=== PATIENT | female | born 1985 | race Caucasian/White ===

== ENCOUNTER 2024-09-20 09:08 | Day surgery (SDC) | payer OTHER, SELFPAY ==
[2024-09-20] VITALS (13 sets, daily range): BP systolic 100–120; BP diastolic 58–86; PULSE 59–91; RESP 16–22; TEMP 36.6–37.2; O2SAT 98–100; BMI 17.2
[2024-09-20] MEDS: LACTATED RINGERS 1000 ML 1,000 ML 100 ML IV (09:20)
[2024-09-20 09:31] LABS: Ur HCG Qualitative* Negative (Negative)
[2024-09-20] MEDS: SODIUM CHLORIDE 0.9 % (FLUSH) 10 ML SYRINGE IVF (09:34)
--- NOTE | 2024-09-20 09:39 | PM.GSCN ---
History of Present Illness Consult details Date Seen: 09/20/24 Consult date: 09/20/24 Narrative: 39-year-old female was referred to general surgery with a concern of acute appendicitis. Patient states that she developed pain 36 hours ago. She was seen at her primary care doctor office yesterday. Pain was described as sharp and dull worse with movement or walking. She had an episode of nausea but no vomiting. She was passing gas. I personally reviewed her workup at [facility]. Her WBC was normal. Her direct bilirubin was 0.3 with normal transaminases and total bilirubin. An abdominal CT was obtained that showed wall enhancing appendix dilated to 0.7 cm. There is no periappendiceal abscess. There was periportal edema noted and the liver was thought to be enlarged. Discussion was held with the patient regarding treatment of her appendicitis with antibiotics versus proceeding with laparoscopic appendectomy, and patient elected to come to surgery for laparoscopic appendectomy. The patient was started antibiotics yesterday. Since patient was started on antibiotics, she felt like her pain was slightly improved but continued to bother her. Review of Systems Narrative: General: no fevers HENT: no problems swallowing CV: no shortness of breath Resp: no cough GI: No nausea, vomiting, abdominal pain : no dysuria, no increased urinary frequency, no hematuria Skin: no new rashes Musculoskeletal: no back pain Neuro: no muscle weakness Psyche: no depression, no anxiety PFSH PFS Medical History (Updated 09/20/24 @ 10:50 by Erika Clark MD) Arrhythmia ?I49.9 - Cardiac arrhythmia, unspecified (ICD-10) Vitamin D deficiency ?E55.9 - Vitamin D deficiency, unspecified (ICD-10) Anemia complicating ?O99.019 - Anemia complicating , unspecified trimester (ICD-10) Social History (Updated 09/20/24 @ 10:49 by Erika Clark MD) Narrative: 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 Smoking Status: Current every day smoker What tobacco products do you use: cigarettes Smoking packs per day: 0.5 Smoking cigarettes per day: 10.0 Do you use any of these nicotine containing products: Vaping Products How often do you have a drink containing alcohol: 2-3 times a week AUDIT-C Alcohol total score: 3 Non-prescribed substance use: denies use Caffeine: Yes Meds Home Medications and Allergies Home Medications ?Medication ?Instructions ?Recorded ?Confirmed ?Type amoxicillin 875 mg-potassium 1 tab PO BID 09/20/24 09/20/24 History clavulanate 125 mg tablet metronidazole 500 mg tablet 500 mg PO BID 09/20/24 09/20/24 History valacyclovir 1 gram tablet 1,000 mg PO BID PRN 09/20/24 09/20/24 History Allergies Allergy/AdvReac Type Severity Reaction Status Date / Time No Known Drug Allergies Allergy Verified 09/20/24 09:20 Exam Narrative: Exam Narrative: General appearance: Alert, cooperative, and in no distress Pulmonary: Chest symmetric, lungs clear bilaterally Cardiovascular Heart: Regular rate and rhythm, S1, S2, no murmurs/rubs/gallops Gastrointestinal Abdominal: soft, not distended, tender to palpation and percussion in the right lower quadrant, positive Rovsing sign. Skin: Normal skin color, texture, and turgor. No rashes or lesions. Psychiatric: Alert, cooperative, normal affect. Const: Vital Signs, click to edit/add: Vital Signs - 24 hr 09/20/24 09:33 Temperature 97.9 F Pulse Rate 81 Respiratory Rate 16 Blood Pressure 106/63 Pulse Oximetry 98 Oxygen Delivery Me thod Room Air Results Labs Labs: All other labs normal. Progress Note:A&P Assessment and plan (1) Acute appendicitis: Status: Acute Plan 39-year-old female presents with right lower quadrant pain that is most likely due to acute appendicitis. I discussed with the patient her laboratory and imaging findings. Patient has pain in the right lower quadrant and is tender on exam in the right lower quadrant. Her CT showed mild dilation of the appendix with wall enhancement. This is concerning for early acute appendicitis. I recommended to proceed with laparoscopic appendectomy. The procedure was discussed in detail. The risks associated procedure including infection, bleeding, and injury to intra-abdominal organs were all discussed with the patient, she agreed to proceed. Patient is cleared for surgery. Patient was also found to have periportal edema with direct bilirubin slightly above the upper limit of normal at 0.3. Patient is not obese with BMI of 17. Patient will have to follow up with her primary care doctor to recheck her labs to make sure they are improving.
--- NOTE | 2024-09-20 10:48 | P.ANES_ITS ---
Anesthesia Charges Start Date/Time Anesthesia Start Date: 09/20/24 Anesthesia Start Time: 10:49 Stop Date/Time Anesthesia Stop Date: 09/20/24 Anesthesia Stop Time: 11:51 Coding CPT Codes CPT Codes: ANESTH SURG LOWER ABDOMEN - 62442 ([id number]) P2 - PATIENT W/MILD SYST DISEASE, QK - TUBE DRAWING SUPERVISOR 2-4 CNCRNT ANES PROC, QX - PIERCING SPECIALIST SVC W/ MD MED DIRECTION
--- NOTE | 2024-09-20 10:48 | W.ANESCHARGE ---
Anesthesia Charges Start Date/Time Anesthesia Start Date: 09/20/24 Anesthesia Start Time: 10:49 Stop Date/Time Anesthesia Stop Date: 09/20/24 Anesthesia Stop Time: 11:51 Coding CPT Codes CPT Codes: ANESTH SURG LOWER ABDOMEN - 36426 ([id number]) P2 - PATIENT W/MILD SYST DISEASE, QK - RECRUITING OPERATIONS CONSULTANT 2-4 CNCRNT ANES PROC, QX - WOOL HAT FORMING MACHINE TENDER SVC W/ MD MED DIRECTION
[2024-09-20] MEDS: PIPERACILLIN/TAZOBACTAM 3.375 GM INJ IVPB (11:00)
[2024-09-20] MEDS: BUPIVACAINE 0.25% 30 ML INJECTION (11:30)
[2024-09-20] MEDS: LIDOCAINE 1%-EPI 1:100,000 20 ML INFILTRATI (11:30)
--- NOTE | 2024-09-20 11:38 | P.GSOP_ITS ---
Operative Note Date of procedure: 09/20/24 Pre-op diagnosis: 1. Acute appendicitis. Post-op diagnosis: 1. Early acute appendicitis. Type of Procedure: 1. Laparoscopic appendectomy. Indications: 39-year-old female was seen in clinic with persistent right lower quadrant pain. Patient underwent workup that showed normal WBC. Her abdominal CT showed will enhancing mildly dilated appendix concerning for early acute appendicitis. On clinical exam patient had tenderness to palpation in the right lower quadrant with positive Rovsing sign. Given patient's clinical history and her physical exam, discussion was held regarding treatment of her early acute appendicitis with antibiotics versus laparoscopic appendectomy, and patient elected to proceed with laparoscopic appendectomy. The procedure was discussed in detail. The risks associated procedure including infection, bleeding, injury to intra- abdominal organs, and the need for additional procedures were all discussed with the patient, and she agreed to proceed. Procedure Description: After discussing the risks and benefits of the procedure, the patient signed informed consent.? The operative site was marked and the patient was brought to the operating room and placed on the operating table in supine position.? Care was taken to pad the patient's pressure points.?? The patient was then intubated by anesthesia.?? The operative site was then prepped and draped in the usual sterile fashion.? A time-out was then performed. A 5-mm laparoscopy port was placed in the left upper quadrant guided by a 5-mm laparoscope placed into a translucent trochar. Passage through the layers of the abdominal wall was visualized with the laparoscope. A pneumoperitoneum was established. A 30-degree 5-mm laparoscope was advanced into the abdomen. The abdomen was briefly surveyed, and there was no evidence of diffuse peritonitis. A 12-mm port and a 5-mm port were placed in the left low quadrant and suprapubically, respectively, under direct visualization by laparoscope. Left upper quadrant entrance port was then examined intraabdominally by placing the camera through the left lower quadrant port and no intraabdominal injury was seen. The patient was placed in Trendelenburg position, allowing the abdominal contents to shift cephalad. The small bowel was moved toward the midline in the abdomen and this allowed for identification of the appendix. The distal tip of the appendix appeared to be dilated but there was no suppurative exudate overlying the appendix. There was no evidence of periappendiceal abscess. The appendix was grasped. A [place] clamp was passed between the appendiceal mesentery and the base of the appendix, creating a window. A vascular load Endo-OLAF stapler was advanced through the 12-mm port into the abdomen and appendix was stapled off at its base. The appendiceal mesentery was skelefohized with a Harmonic scalpel. Appendiceal artery and vein were identified and was clipped with vascular clips on the patient's side and divided with Harmonic scalpel on the specimen side. The appendix was then placed in an endoscopic retrieval bag and extracted from the abdomen through the 12-mm port. The abdomen was surveyed for hemostasis. And no bleeding was seen. The 12-mm port was withdrawn and the fascial defect was closed with a [id number] 0-0 Vicryl stitch. The 5-mm port was removed under direct visualization. The left upper quadrant port was used to evacuate the pneumoperitoneum and then withdrawn. The skin incisions were closed with 4-0 monocryl. Steri-Strips were applied over the incisions. All counts were correct at the end of the case. The patient tolerated this procedure well and was transferred to PACU in stable condition. Findings: Dilated appendiceal tip with no evidence of perforation. Anesthesia: GETA Surgeon: Erika Clark MD Specimen: Appendix Condition: stable Disposition: PACU
--- NOTE | 2024-09-20 11:53 | P.ANES_ITS ---
Anesthesia Charges Start Date/Time Anesthesia Start Date: 09/20/24 Anesthesia Start Time: 10:49 Stop Date/Time Anesthesia Stop Date: 09/20/24 Anesthesia Stop Time: 11:51 Coding CPT Codes CPT Codes: ANESTH SURG LOWER ABDOMEN - 05498 ([id number]) P1 - NORMAL HEALTHY PATIENT, QK - AGRICULTURAL PURCHASING AGENT 2-4 CNCRNT ANES PROC, QX - FILM EXAMINER SVGloria W/ MED DIRECTION
--- NOTE | 2024-09-20 11:53 | W.ANESCHARGE ---
Anesthesia Charges Start Date/Time Anesthesia Start Date: 09/20/24 Anesthesia Start Time: 10:49 Stop Date/Time Anesthesia Stop Date: 09/20/24 Anesthesia Stop Time: 11:51 Coding CPT Codes CPT Codes: ANESTH SURG LOWER ABDOMEN - 35824 ([id number]) P1 - NORMAL HEALTHY PATIENT, QK - WELT SOLE LAYER 2-4 CNCRNT ANES PROC, QX - SILK WINDING MACHINE OPERATOR SVGloria W/ MED DIRECTION
--- NOTE | 2024-09-20 12:01 | SUR.PHASEI ---
Patient arrived to PACU awake, denying pain or nausea.
--- NOTE | 2024-09-20 12:12 | SUR.PHASEI ---
Patient resting comfortably in PACU. Meets anesthesia discharge from PACU
[2024-09-20] MEDS: MEPERIDINE 25 MG/ML INJ 12.5 MG IVP (12:30)
== END 2024-09-20 13:08 | disposition home or self-care (01) ==
PROVIDERS: Anesthesiology; PCP Nurse Practitioner Family; Visit Provider Surgery
PROC: 0DTJ4ZZ Resection of Appendix, Percutaneous Endoscopic Approach (ICD-10-PCS; CPT 44970; principal; 2024-09-20 10:15)
DX: K35.80 Unspecified acute appendicitis (principal); F17.210 Nicotine dependence, cigarettes, uncomplicated
CPT/HCPCS: 44970; 00840; 81025; 88304; J0330; J0665; J1100; J1885; J2175; J2250; J2405; J2543; J2704; J2710; J3010; J7120